=== PATIENT | female | born 1980 | race Caucasian/White ===

== ENCOUNTER → 2017-03-21 | Outpatient (CLI) | payer BC ==
[~2017-03-21] MED LIST: CALC500C3; FAMO20TA11 PO; PRENTAB26 PO
--- NOTE | 2017-03-22 14:36 | MAMMOGRAPHY REPORT ---
BILATERAL FIRST EVER DIGITAL SCREENING MAMMOGRAM TOMOSYNTHESIS WITH CAD: 03/21/2017 CLINICAL HISTORY: Baseline examination. TECHNIQUE: Breast tomosynthesis in addition to standard 2D mammography was performed. Current study was also evaluated with a Computer Aided Detection (CAD) system. COMPARISON: No prior exams were available for comparison. BREAST COMPOSITION: The tissue of both breasts is extremely dense, which lowers the sensitivity of mammography. FINDINGS: A linear scar marker overlies the superior left breast. No suspicious mass, architectura l distortion or cluster of microcalcifications is seen. IMPRESSION: ACR BI-RADS CATEGORY 1: NEGATIVE There is no mammographic evidence of malignancy. A 3 year screening mammogram is recommended. The p atient will receive written notification of the results. Approximately 10% of breast cancers are not detected with mammography. A negative mammographic repor t should not delay biopsy if a clinically suggestive mass is present. Shasta Cheema M.D. ay/:03/22/2017 07:10:52 Solar Installer Technician: Delaney MURRAY(Clara)(Boy), letter sent: Normal 1/2 BI-RADS Code: ACR BI-RADS Category 1: Negative
== END | disposition home or self-care (01) ==
LOC: C.MAMM 15:21
PROVIDERS: ATTEND Family Medicine
DX: Z12.31 Encounter for screening mammogram for malignant neoplasm of breast (principal)

== ENCOUNTER → 2018-01-18 | Outpatient (CLI) | payer OTHER ==
--- NOTE | 2018-01-18 17:41 | ECHOCARDIOGRAM REPORT ---
*NOTICE TO RECEIVING CONSTITUTION PARTY AGENCY This information is strictly Confidential and protected under [place] law. [place] law prohibits you from making any further disclosure of this information unless further disclosure is expressly permitted by the written consent of the person to whom it pertains or is authorized by law. A general authorization for the release of medical or other information is not sufficient for this purpose. Hospital accepts no responsibility if the information is made available to any other person, INCLUDING THE PATIENT. Interpretation Summary * Name: KASSIE ELIZABETH Study Date: 01/18/2018 01:15 PM BP: 112/62 mmHg * Patient Location: [facility] HR: 51 * : 1980 (M/d/yyyy) Gender: Female Height: 64 in * Age: 37 yrs Ethnicity: [place] Weight: 110 lb * Ordering Physician: Jadon Cabezas * Referring Physician: Jadon Cabezas * Performed By: Nicole Hennessy RCS * * Reason For Study: Chest Pain * BSA: 1.5 m2 * -- Conclusions -- * 1. Normal LV size and wall thickness. * 2. Normal LV systolic function. LVEF 55-60%. No regional wall motiona abnormalities. * 3. Normal RV size and function. * 4. Trace aortic regurgitation. * 5. Normal estimated RA and PA pressures. * 6. No prior studies for comparison. Procedure Details * A complete two-dimensional transthoracic echocardiogram was performed (2D, M-mode, Doppler and color flow Doppler). Left Ventricle * The left ventricle is grossly normal size. * There is normal left ventricular wall thickness. * Ejection Fraction = 55-60%. * No regional wall motion abnormalities noted. Right Ventricle * The right ventricle is grossly normal size. * The right ventricular systolic function is normal as assessed by tricuspid annular plane systolic excursion (TAPSE) (normal >1.5 cm). Atria * The left atrial size is normal. * Right atrial size is normal. * No ASD detected; PFO is not assessed. Mitral Valve * The mitral valve is grossly normal. * There is no mitral valve stenosis. * Significant mitral regurgitation is absent. Tricuspid Valve * The tricuspid valve is not well visualized, but is grossly normal. * There is no tricuspid stenosis. * There is trace tricuspid regurgitation. Aortic Valve * The aortic valve opens well. * The aortic valve is trileaflet. * No hemodynamically significant valvular aortic stenosis. * Trace aortic regurgitation. Pulmonic Valve * The pulmonary valve is inadequately visualized, but the Doppler data is adequate for interpretation. * Pulmonic stenosis is absent. * There is no significant pulmonary regurgitation. Great Vessels * The aortic root and proximal ascending aorta are normal sized. Pericardium/Pleural * There is no pericardial effusion. Great Vessels * Normal inferior vena cava size and collapsability with sniff indicates a normal right atrial pressure of 3 mmHg MMode 2D Measurements and Calculations IVSd 0.80 cm IVSs 1.1 cm LVIDd 4.4 cm LVIDs 2.8 cm LVPWd 0.89 cm LVPWs 1.9 cm IVS/LVPW 0.90 FS 34.9 % EDV(Teich) 86.5 ml ESV(Teich) 30.8 ml EF(Teich) 64.4 % EDV(cubed) 83.8 ml ESV(cubed) 23.1 ml EF(cubed) 72.4 % % IVS thick 34.7 % % LVPW thick 114.2 % LV mass(C)d 116.0 grams LV mass(C)dI 76.5 grams/m\S\2 LV mass(C)s 145.6 grams LV mass(C)sI 96.0 grams/m\S\2 SV(Teich) 55.7 ml SI(Teich) 36.7 ml/m\S\2 SV(cubed) 60.7 ml SI(cubed) 40.0 ml/m\S\2 Ao root diam 3.1 cm Ao root area 7.4 cm\S\2 ACS 1.6 cm asc Aorta Diam 2.4 cm EDV(MOD-sp4) 110.0 ml ESV(MOD-sp4) 53.0 ml EF(MOD-sp4) 51.8 % EDV(MOD-sp2) 127.0 ml ESV(MOD-sp2) 48.0 ml EF(MOD-sp2) 62.2 % SV(MOD-sp4) 57.0 ml SI(MOD-sp4) 37.6 ml/m\S\2 SV(MOD-sp2) 79.0 ml SI(MOD-sp2) 52.1 ml/m\S\2 Doppler Measurements and Calculations MV E max starr 83.8 cm/sec MV A max starr 36.6 cm/sec MV E/A 2.3 MV P1/2t max starr 107.8 cm/sec MV P1/2t 99.6 msec MVA(P1/2t) 2.2 cm\S\2 MV dec slope 317.1 cm/sec\S\2 MV dec time 0.28 sec Ao V2 max 126.8 cm/sec Ao max PG 6.4 mmHg Ao max PG (full) 2.1 mmHg LV V1 max PG 4.3 mmHg LV V1 max 103.5 cm/sec PA V2 max 94.5 cm/sec PA max PG 3.6 mmHg TR max starr 201.2 cm/sec
== END | disposition home or self-care (01) ==
LOC: C.CPL 12:59
PROVIDERS: ATTEND Family Medicine
DX: R07.9 Chest pain, unspecified (principal)

== ENCOUNTER 2019-10-18 03:28 | Inpatient (IN) ==
[2019-10-18] MEDS ORDERED: BUPIVACAINE 0.25% 30 ML VIAL ONE (04:07)
[2019-10-18] MEDS ORDERED: ePHEDrine sulfate 50 MG/ML AMP ONE (04:07)
[2019-10-18] MEDS ORDERED: OXYTOCIN 30 UNITS/500 ML BAG IV PRN ×3 (04:07→13:09)
[2019-10-18] MEDS ORDERED: fentaNYL citrate 100 MCG/2 ML VIAL ONE (04:07)
[2019-10-18] MEDS ORDERED: fentaNYL 2MCG/ML ROPIV 1.25MG/ML 100 ML BAG EPI ONE (04:08)
[2019-10-18] MEDS: LACTATED RINGER'S 1,000 ML IV PRN ×3 (04:15→06:28)
--- NOTE | 2019-10-18 04:30 | History & Physical Report ---
Date of Service October 18, 2019 Assessment & Plan (1) Normal labor: AMA with IUP at 38 weeks now in active labor history of oligohydramnios now resolved on most recent ultrasound on 10/18 she is requesting epidural analgesia anticipate vaginal Present on Admission?: Yes History of Present Illness Primary Care Provider: NO PCP Patient is a 38 yo white female EDC 10/30/19 who presents with spontaneous labor with contractions every 4-5 minutes. no bloody show or ROM. GBS (-) Blood type ) (+). She had a prior child with Trisomy 21 who also had a heart anomaly. Cell free DNA this is low irks & echo was normal. This was complicated by AMA and oligohydramnios at 33 weeks. NST't have been reactive and yeserday's DVP was 3.8cm. Allergies Allergy/AdvReac Type Severity Reaction Status Date / Time No Known Allergies Allergy Verified 10/17/19 10:17 Home Medications Home Medications Medication Instructions Recorded Confirmed Type Gummies 2 tab PO DAILY 10/18/19 10/18/19 History Patient History Social History Preferred Language: Uzbek Communication Ability: Effective Visual Impairment: No Limitations Offal Icer Poultry Required: No Beliefs That Will Affect Care: None marital status: Current Living Situation: Spouse and Family Other Information That Helps Us Care for You: No Feels Safe at Home: Yes Safety Concerns: Feels Safe At This Time Smoking Status: Never smoker Second Hand Exposure: No ; Hx Alcohol Use: No Hx Substance Use: No Review of Systems All systems reviewed & are unremarkable except as noted in HPI & below Physical Exam Constitutional: WD/WN, vitals as above Psychiatric: A+Ox3, euthymic affect Genitourinary: OB Exam Abdomen: + vertex and + regular contractions ( q4-5 mintues) Manual OB Exam: + cervical dilation 4 cm, + cervical effacement 70% and + station -1 OB Exam Monitor Tracing: + external FHT monitor used, + category I and + normal FHT variability Results & Data Vital Signs (Past 12 Hours) Vital Signs Temp Pulse Resp BP 10/18/19 04:00 71 120/73 10/18/19 03:41 60 142/68 H 10/18/19 03:37 97.5 F L 18
[2019-10-18 04:44] LABS: Hematocrit (blood only) 33.7 % (37-47); Hemoglobin 11.3 g/dL (12.0-16.0); Mean Corpuscular Hemoglobin 29.6 pg (25-34); Mean Corpuscular Volume 88.2 fL (80-100); Mean Platelet Volume 10.4 fL (7.4-10.4); Platelet Count 207 K/uL (130-400); RDW Coefficient of Variation 12.7 % (11.5-14.5); Red Blood Count 3.82 M/uL (4.2-5.4); White Blood Count 7.31 K/uL (4.8-10.8)
[2019-10-18 04:52] LABS: Mean Corpuscular Hgb Conc 33.5 g/dL (32-36)
[2019-10-18] MEDS ORDERED: NALOXONE HCL 0.4 MG/1 ML VIAL/CARP IV PRN (04:55)
[2019-10-18] MEDS ORDERED: fentaNYL 2MCG/ML ROPIV 1.25MG/ML 100 ML BAG EPI PRN (04:55)
[2019-10-18] MEDS ORDERED: NALOXONE HCL 1 MG in SODIUM CHLORIDE 0.9% 1000ML 1,000 ML IV PRN (04:55)
[2019-10-18] MEDS ORDERED: ONDANSETRON INJ 2 MG/ML 2 ML VIAL IV PRN (04:55)
[2019-10-18] MEDS ORDERED: NALBUPHINE HCL INJ 10 MG/ML AMP IV PRN (04:55)
[2019-10-18] MEDS ORDERED: ePHEDrine sulfate 50 MG/ML AMP IV PRN (04:55)
[2019-10-18] MEDS ORDERED: DiphenhydrAMINE HCL 50 MG/ML VIAL IV PRN (04:55)
--- NOTE | 2019-10-18 05:15 | Anesthesiology Consultation ---
Date of Service October 18, 2019 Assessment & Plan (1) Encounter for pre-operative examination: Chart Review Chart Review: Patient NOT seen in Pre Admission Testing and Acceptable Risk for Labor Epidural Consults Requested none History Height/Weight Height: 5 ft 4 in Weight: 56.699 kg Allergies Allergy/AdvReac Type Severity Reaction Status Date / Time No Known Allergies Allergy Verified 10/17/19 10:17 Medications Home Medications Medication Instructions Recorded Confirmed Last Taken Gummies 2 tab PO DAILY 10/18/19 10/18/19 10/17/19 Active Medications Generic Name Dose Route Start Last Admin Trade Name Freq PRN Reason Stop Dose Admin Lactated Ringer's 1,000 mls @ 125 mls/hr 10/18/19 04:07 10/18/19 04:15 Lr IV 10/20/19 04:06 999 mls/hr .Q8H PRN Administration L&D Protocol Protocol Past Medical History Medical History Depression with anxiety H/O pneumothorax SPONTANEOUS PNEUMOTHORAX (1995) History of chicken pox Exercise / Class Metabolic Activity II 4-5 Yardwork/Stairs/Walk up hill Past Family History Family History Grandmother (Paternal) Cataract Colorectal cancer Aunt Breast cancer, Onset Age: 50 maternal aunt Endometriosis maternal aunt Daughter Down syndrome Grandmother (Maternal) Glaucoma Mother Hyperlipidemia Grandfather (Paternal) Lung cancer Father Skin cancer Past Surgical History Surgical History H/O ovarian cystectomy 1996 History of appendectomy History of lung surgery LAPRASCOPIC STAPLING OF LEFT LUNG S/P PNEUMOTHORAX S/P dilation and curettage S/P sclerotherapy of varicose veins S/P wisdom tooth extraction Past Anesthesia History No Hx of Anesthesia Complications and No Family Hx of Anesthesia Complications History of PONV No Hx of PONV and No Hx of Motion Sickness Social History Smoking Status: Never smoker Do You Dip or Chew Tobacco: No Hx Alcohol Use: No Hx Substance Use: No substance use type: does not use Physical Exam Vital Signs Last Vital Signs Temp 36.4 C L 10/18/19 03:37 Pulse 76 10/18/19 05:13 Resp 18 10/18/19 03:37 BP 120/73 10/18/19 04:00 Pulse Ox 86 L 10/18/19 05:13 Testing Laboratory Results 10/18/19 04:21
--- NOTE | 2019-10-18 10:29 | Labor Progress Brief Note ---
Date of Service October 18, 2019 Subjective Reason For Note: Routine Evaluation Assessment & Plan (1) Supervision of elderly multigravida: (2) Normal labor: - no cervical change since admission - AROM, scant fluid - will monitor for increased uterine activity - if no cervical change, may need pitocin Physical Exam Genitourinary: OB Exam Monitor Tracing: + category II and + normal FHT variability Cervix: 4/100/-2, AROM, scant fluid Results & Data Vital Signs (Past 12 Hours) Vital Signs Temp Pulse Resp BP Pulse Ox 10/18/19 10:25 60 109/64 10/18/19 10:24 59 L 100 10/18/19 10:19 62 99 10/18/19 10:14 61 99 10/18/19 10:12 56 L 100/55 L 10/18/19 10:09 57 L 100 10/18/19 10:04 56 L 100 10/18/19 09:59 58 L 100 10/18/19 09:57 64 101/49 L 10/18/19 09:54 66 98 10/18/19 09:49 60 100 10/18/19 09:48 71 86 L 10/18/19 09:44 71 99 10/18/19 09:42 59 L 101/54 L 10/18/19 09:39 75 99 10/18/19 09:35 76 93 10/18/19 09:34 55 L 100 10/18/19 09:29 50 L 100 10/18/19 09:25 54 L 110/57 L 10/18/19 09:24 63 100 10/18/19 09:19 51 L 100 10/18/19 09:14 49 L 100 10/18/19 09:12 56 L 106/58 L 10/18/19 09:09 51 L 100 10/18/19 09:04 58 L 100 10/18/19 08:59 61 100 10/18/19 08:56 79 92/53 L 10/18/19 08:54 55 L 100 10/18/19 08:49 57 L 100 10/18/19 08:44 51 L 99 10/18/19 08:41 50 L 100/59 L 10/18/19 08:39 54 L 100 10/18/19 08:34 60 100 10/18/19 08:29 67 100 10/18/19 08:26 60 115/50 L 10/18/19 08:24 59 L 100 10/18/19 08:19 57 L 100 10/18/19 08:14 57 L 100 10/18/19 08:12 54 L 109/54 L 10/18/19 08:09 60 100 10/18/19 08:04 72 100 10/18/19 07:59 66 100 10/18/19 07:56 75 16 112/59 L 92 10/18/19 07:54 61 100 10/18/19 07:49 60 100 10/18/19 07:44 59 L 100 10/18/19 07:42 55 L 107/55 L 10/18/19 07:39 59 L 100 10/18/19 07:34 62 100 10/18/19 07:29 57 L 100 10/18/19 07:26 55 L 91/52 L 10/18/19 07:24 59 L 100 10/18/19 07:19 71 100 10/18/19 07:14 70 100 10/18/19 07:11 97.5 F L 61 16 118/59 L 10/18/19 07:09 74 100 10/18/19 07:04 61 100 10/18/19 06:59 55 L 100 10/18/19 06:55 54 L 120/66 10/18/19 06:54 55 L 100 10/18/19 06:49 71 100 10/18/19 06:44 64 100 10/18/19 06:42 63 119/57 L 10/18/19 06:39 55 L 100 10/18/19 06:34 53 L 100 10/18/19 06:29 54 L 100 10/18/19 06:24 59 L 100 10/18/19 06:23 51 L 115/61 10/18/19 06:19 53 L 100 10/18/19 06:18 54 L 110/59 L 10/18/19 06:14 51 L 100 10/18/19 06:13 49 L 107/59 L 10/18/19 06:09 55 L 100 10/18/19 06:08 53 L 110/56 L 10/18/19 06:04 58 L 100 10/18/19 06:03 52 L 125/64 10/18/19 06:00 18 10/18/19 05:59 49 L 127/65 100 10/18/19 05:54 55 L 99 10/18/19 05:53 55 L 119/58 L 10/18/19 05:49 65 126/59 L 100 10/18/19 05:45 18 10/18/19 05:44 58 L 100 10/18/19 05:42 58 L 121/62 10/18/19 05:40 60 121/59 L 10/18/19 05:39 56 L 100 10/18/19 05:38 61 119/64 10/18/19 05:36 58 L 127/62 10/18/19 05:34 60 132/64 100 10/18/19 05:33 62 120/60 10/18/19 05:30 61 127/66 10/18/19 05:29 57 L 99 10/18/19 05:28 59 L 127/66 10/18/19 05:26 54 L 132/70 10/18/19 05:25 51 L 119/61 10/18/19 05:24 52 L 99 10/18/19 05:23 52 L 85/42 L 10/18/19 05:21 38 L 64/27 L 10/18/19 05:19 53 L 65/38 L 98 10/18/19 05:16 64 95/54 L 10/18/19 05:15 62 106/54 L 10/18/19 05:14 69 100 10/18/19 05:13 76 86 L 10/18/19 05:10 18 10/18/19 05:09 71 100 10/18/19 05:04 70 100 10/18/19 05:03 58 L 94 10/18/19 04:59 56 L 100 10/18/19 04:00 71 120/73 10/18/19 03:41 60 142/68 H 10/18/19 03:37 97.5 F L 18
[2019-10-18] MEDS ORDERED: SILVER NITR/POTASSIUM NITRATE APPLICATOR ONE (12:52)
--- NOTE | 2019-10-18 13:00 | Delivery Summary ---
Vaginal Delivery Summary Date of Service October 18, 2019 Vaginal Delivery Summary Vaginal Delivery Summary: Pre-delivery diagnoses: 38yo @ 38 2/, spontaneous labor, AMA, oligohydramnios at 33w - yesterday's DVP wnl Post-delivery diagnoses: same Procedure: spontaneous vaginal delivery Surgeon: Shira Santo DO Complications: none Findings: Viable female . Apgars: 8/9 . Weight pending, please see nursery records Estimated blood loss: 300ml Description of delivery: The patient progressed to complete with epidural anesthesia. She then began to push. She spontaneously vaginally delivered a viable from the cephalic presentation. The head delivered in PRASHANTH position with compound right hand. The anterior shoulder delivered, followed by right hand, then the posterior shoulder, followed by the body. The baby was placed on mother's abdomen and a spontaneous cry was heard. Delayed cord clamping was employed, and the cord was doubly clamped and cut. Cord blood was obtained. The placenta was delivered spontaneously intact with a 3-vessel cord. The uterus and vagina were swept of clots and debris. IV pitocin was given. The uterus became firm. The cervix, vagina, and perineum were inspected and a superficial perineal abrasion was noted and made hemostatic with silver nitrate sticks. Excellent hemostasis was observed. The mother and baby are recovering in stable and good condition in the room. Sponge and instrument counts were correct x 2. Shira Santo DO [facility] [place]
[2019-10-18] MEDS ORDERED: SUPERCREAM 0.870% 15 GM JAR EXT PRN (13:09)
[2019-10-18] MEDS ORDERED: HYDROCORTISONE ACETATE 25 MG SUPP PR PRN (13:09)
[2019-10-18] MEDS ORDERED: OXYCODONE/ACETAMINOPHEN 5mg/325mg TAB PO PRN (13:09)
[2019-10-18] MEDS ORDERED: BENZOCAINE 20% AER SPR 82.5 GM CAN EXT PRN (13:09)
[2019-10-18] MEDS ORDERED: DIPHTHERIA/TETANUS/PERTUSSIS 0.5 ML SYR/VIAL IM ONE (13:09)
[2019-10-18] MEDS ORDERED: BISACODYL 10 MG SUPP PR PRN (13:09)
--- NOTE | 2019-10-18 14:43 | Anesthesia Procedure Note ---
Date of Service October 18, 2019 Anesthesia Post Epidural Note Vital Signs Vital Signs: Temp Pulse Resp BP Pulse Ox 36.7 C 49 L 18 116/54 L 100 10/18/19 11:27 10/18/19 14:42 10/18/19 14:00 10/18/19 14:42 10/18/19 12:49 Pain Intensity Lower Abdomen: Pain Intensity: 3 Notes Mental Status: alert / awake / arousable and participated in evaluation Nausea / Vomiting: adequately controlled Pain: adequately controlled Airway Patency, RR, SpO2: stable & adequate BP & HR: stable & adequate Hydration State: stable & adequate Neuraxial Anesthesia: was administered and sensory block is resolving Anesthetic Complications: no major complications apparent and Pt Satisfied with anesthetic care Epidural: Removed without complications and With tip intact
[2019-10-18] MEDS: IBUPROFEN 600 MG TAB PO PRN ×3 (15:53→23:48)
[2019-10-18] MEDS: DOCUSATE SODIUM 100 MG CAP PO SCH (20:14)
--- NOTE | 2019-10-19 05:53 | Obstetrical Progress Note ---
Date of Service October 19, 2019 Assessment & Plan (1) Status post vaginal delivery: Alisia is a 38 yo on PPD1 after . - GBS -, Blood Type O+, Rubella immune -Vitals reviewed and WNL (Tmax 37.1) -patient is doing clinically well Continue routine post care - After discharge will have [address] Santo. Supervising Physician Co-Signing Physician Notes Resident Physician Supervision Note: I was present with Dr. Molina during the history and exam. I discussed the case with the resident and agree with the findings and plan as documented in the note. Any exceptions or clarifications are listed here: POD#1 doing well. Anticipate DC home tomorrow. Documented By: Shira Santo, Subjective Ambulation: ambulating normally Voiding: no voiding problems Passing Gas:: has not yet Diet Tolerance:: regular diet Lochia:: moderate Feeding Type:: breast feeding Review of Systems Constitutional: no fever, no chills and no sweats Eyes: no worsening vision Respiratory: no cough and no dyspnea Cardiovascular: no chest pain, no palpitations, no edema and no calf pain Gastrointestinal: no nausea and no vomiting Genitourinary: no dysuria and no urinary frequency Neurologic: no headache(s) Physical Exam Constitutional: WD/WN, vitals as above no acute distress Respiratory: normal respiratory effort, lungs clear to auscultation does not use accessory muscles Auscultation: no crackles, no rales, no rhonchi, no wheezes and no pleural rub Cardiovascular: Rate/Rhythm: regular rate and regular rhythm Heart Sounds: normal S1 and normal S2; no gallop, no murmur and no cardiac rub Extremities: no calf tenderness and no pedal edema Gastrointestinal (Abdomen): Inspection/Auscultation: normal bowel sounds; abdomen not distended Percussion/Palpation: abdomen soft Genitourinary: Uterus: fundus firm, palpable 1 cm below the umbilicus Results & Data Vital Signs (Past 12 Hours) Vital Signs Temp Pulse Resp BP Pulse Ox 10/19/19 03:15 36.7 C 53 L 16 105/71 97 10/18/19 23:50 36.7 C 45 L 16 114/70 98 10/18/19 19:35 36.6 C 60 16 97/56 L 100 Resident Activity Tracking Resident Involvement: Resident Care Provided Care Provided: OB Delivery
[2019-10-19] MEDS: IBUPROFEN 600 MG TAB PO PRN ×2 (06:00→15:09)
[2019-10-19 06:39] LABS: Hematocrit (blood only) 32.2 % (37-47); Hemoglobin 10.9 g/dL (12.0-16.0)
[2019-10-19] MEDS: DOCUSATE SODIUM 100 MG CAP PO SCH ×2 (08:20→21:07)
[2019-10-19] MEDS: PRENATAL VITAMIN 1 TAB PO SCH (08:20)
--- NOTE | 2019-10-19 08:34 | Obstetrical Progress Note ---
Date of Service October 19, 2019 Subjective Patient with significant vulvar and LE varicosities, these have been present throughout . She had felt better after delivery and this morning during rounds, but is now reporting increased LE pain to RN. Will obtain venous doppler due to her new complaint to r/o DVT, as this is increased risk in period. Results & Data Vital Signs (Past 12 Hours) Vital Signs Temp Pulse Resp BP Pulse Ox 10/19/19 03:15 36.7 C 53 L 16 105/71 97 10/18/19 23:50 36.7 C 45 L 16 114/70 98 PG Care Time/CCT Total # of Minutes Spent Total Time Spent with Patient: Total time spent is greater than 50% in coordination of care (as documented) at patient's floor/unit and/or counseling patient:
--- NOTE | 2019-10-19 10:50 | Ultrasound Report ---
ULTRASOUND BILATERAL LOWER EXTREMITY VENOUS CLINICAL HISTORY: Lower extremity pain and swelling. Venous varicosities. COMPARISON STUDY: Left lower extremity venous ultrasound dated 07/13/2015. TECHNIQUE: Real-time, grayscale, and color Doppler sonography of the deep veins of the right and left lower extremity was performed from the inguinal crease to the calf. Compression and augmentation wer e utilized. FINDINGS: There is no sonographic evidence of deep venous thrombosis identified in the right or left lower extremity. The common femoral, superficial femoral, and popliteal veins are patent and normally compressible bilaterally. The greater saphenous vein and the profunda femoris vein at the junction w ith the common femoral vein are clear in both legs. The visualized calf veins are patent bilaterally. Numerous venous varicosities are present in both legs. At the point of interest posterior to left kn ee there are thrombosed superficial venous varicosities. This measures approximately 2 cm in length. A right popliteal cyst measures 3.8 x 2.6 x 4.1 cm. IMPRESSION: 1. There is no sonographic evidence of deep venous thrombosis identified in the right or left lower e xtremity. 2. Popliteal cyst. 3. 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 4. At the site of concern posterior to the left knee there are thrombosed superficial venous varicosi ties. Electronically signed by: Heath Tidwell M.D. 10/19/2019 10:49 AM
[2019-10-19] MEDS: ACETAMINOPHEN 325 MG TAB PO PRN (17:50)
[2019-10-19] MEDS ORDERED: BISACODYL 5 MG TABEC PO SCH (20:00)
[2019-10-20] MEDS: IBUPROFEN 600 MG TAB PO PRN ×2 (00:46→08:17)
[2019-10-20] MEDS: ACETAMINOPHEN 325 MG TAB PO PRN (05:02)
--- NOTE | 2019-10-20 07:58 | Obstetrical Progress Note ---
Date of Service October 20, 2019 Assessment & Plan (1) Supervision of elderly multigravida: - patient desires d/c - instructions given - f/u in 6 weeks for pp check Present on Admission?: Yes (2) Superficial thrombophlebitis during : - Doppler studies reviewed with patient - no DVT's - superficial thromboses behind left knee where tender - no signs of DVT on exam - will continue Motrin/Heat/stockings - signs and symptoms of DVT reviewed with patient - if they occur, to ER Present on Admission?: Yes Subjective Doing well, some pain behind left knee, feels better with support hose Physical Exam Constitutional WD/WN, vitals as above Gastrointestinal (Abdomen) Fundus firm below umbilicus Musculoskeletal No deep calf tenderness, no erythema, (-)Homans Results & Data Vital Signs (Past 12 Hours) Vital Signs Temp Pulse Resp BP Pulse Ox 10/20/19 07:06 98.6 F 64 16 115/65 97 10/20/19 00:00 98.2 F 48 L 16 113/65
[2019-10-20] MEDS: DOCUSATE SODIUM 100 MG CAP PO SCH (08:15)
[2019-10-20] MEDS: PRENATAL VITAMIN 1 TAB PO SCH (08:15)
== END 2019-10-20 11:25 | disposition home or self-care (01) | DRG 807 ==
LOC: OPB 03:28 → 4S1 03:31 → 4S2 15:48